=== PATIENT | female | born 1975 | race Caucasian/White ===

== ENCOUNTER 2022-09-25 11:15 | Outpatient (CLI) | payer MEDICAID, SELFPAY ==
[2022-09-25 21:44] LABS: Albumin* 4.2 g/dL (3.3-5.0)
[2022-09-25 21:45] LABS: Chloride* 103 mmol/L (96-114); Potassium* 4.1 mmol/L (3.6-5.1); Sodium* 139 mmol/L (135-149)
[2022-09-25 21:47] LABS: Bilirubin Total* 0.8 mg/dL (0.1-1.5); Carbon Dioxide* 30 mmol/L (20-32); Cholesterol* 220 mg/dL (90-199); Creatinine* 0.8 mg/dL (0.5-1.5); Estimated Glomerular Filt Rate 93 ml/min
[2022-09-25 21:48] LABS: Alanine Aminotransferase* 32 U/L (4-35); Alkaline Phosphatase* 112 U/L (40-150); Aspartate Amino Transferase* 29 U/L (12-35); Blood Urea Nitrogen* 15 mg/dL (5-24); Calcium* 9.4 mg/dL (8.4-10.6); Glucose* 93 mg/dL (60-115); Total Protein* 7.3 g/dL (6.0-8.3); Triglycerides* 263 mg/dL (40-149)
[2022-09-25 21:49] LABS: HDL Cholesterol* 45 mg/dL (>=50); LDL Cholesterol Calculated 122 mg/dL (<100)
== END 2022-09-25 11:16 | disposition home or self-care (01) ==
PROVIDERS: Visit Provider Physician Assistant Medical
DX: Z01.419 Encounter for gynecological examination (general) (routine) without abnormal findings (principal); I10 Essential (primary) hypertension; R73.03 Prediabetes; E66.9 Obesity, unspecified; R82.90 Unspecified abnormal findings in urine
CPT/HCPCS: 80053; 80061; 84443

== ENCOUNTER 2022-12-17 08:03 | Outpatient (CLI) | payer MEDICAID, SELFPAY ==
--- NOTE | 2022-12-17 08:15 | CRLHL7_ITS ---
For Patients: As a result of the Cures Act, medical imaging exams and procedure reports are released immediately into your electronic medical record. You may view this report before your referring provider. If you have questions, please contact your health care provider. BILATERAL DIGITAL SCREENING MAMMOGRAM WITH COMPUTER-AIDED DETECTION CLINICAL HISTORY: Routine screening exam. COMPARISON: None TECHNIQUE: Digital mammogram in CC and MLO projections including computer-aided detection (CAD). BREAST COMPOSITION: There are scattered areas of fibroglandular density. FINDINGS: RIGHT Breast: Focal nodular density within the lower inner quadrant 8 cm from the nipple. LEFT Breast: No suspicious findings. IMPRESSION: RIGHT breast asymmetry/mass. RECOMMENDATIONS: Additional mammographic views of the RIGHT breast including 3D spot compression CC/MLO. RIGHT breast ultrasound may also be required. BI-RADS Category 0: Incomplete: Need Additional Imaging Evaluation and/or Prior Mammograms for Comparison [facility] will contact the patient for follow-up. A lay language report of this examination will be provided to the patient. Dictated by Alfredo Marcano MD @ 12/17/2022 9:32:26 AM PT/Dictated by: Alfredo Marcano MD @ 12/17/2022 9:33:00 AM (Electronically Signed)
== END 2022-12-17 08:04 | disposition home or self-care (01) ==
LOC: MAMMO 08:04
PROVIDERS: Visit Provider Physician Assistant Medical
DX: Z12.31 Encounter for screening mammogram for malignant neoplasm of breast (principal); N63.10 Unspecified lump in the right breast, unspecified quadrant
CPT/HCPCS: 77063; 77067

== ENCOUNTER 2022-12-21 08:36 | Outpatient (CLI) | payer MEDICAID, SELFPAY ==
--- NOTE | 2022-12-21 08:45 | CRLHL7_ITS ---
For Patients: As a result of the Cures Act, medical imaging exams and procedure reports are released immediately into your electronic medical record. You may view this report before your referring provider. If you have questions, please contact your health care provider. RIGHT DIAGNOSTIC MAMMOGRAM WITH COMPUTER-AIDED DETECTION AND TOMOSYNTHESIS CLINICAL HISTORY: RIGHT breast mass/asymmetry. COMPARISON: 12/17/2022 TECHNIQUE: Digital RIGHT mammogram in two projections with computer-aided detection and tomosynthesis. BREAST COMPOSITION: There are scattered areas of fibroglandular density. FINDINGS: 3D spot-compression CC/MLO RIGHT breast mammogram images submitted. Decreased conspicuity of the asymmetric density within the inferior RIGHT breast. No architectural distortion. No suspicious masses. IMPRESSION: No evidence of malignancy. RECOMMENDATIONS: Annual BILATERAL screening mammography. BI-RADS Category 2: Benign Results and recommendations discussed with the patient. A lay language report of this examination will be provided to the patient. Dictated by Alfrdeo Marcano MD @ 12/21/2022 10:33:54 AM PT/Dictated by: Alfredo Marcano MD @ 12/21/2022 10:33:00 AM (Electronically Signed)
== END 2022-12-21 08:37 | disposition home or self-care (01) ==
LOC: MAMMO 08:37
PROVIDERS: Visit Provider Physician Assistant Medical
DX: N63.10 Unspecified lump in the right breast, unspecified quadrant (principal); R92.8 Other abnormal and inconclusive findings on diagnostic imaging of breast
CPT/HCPCS: 77065; G0279

== ENCOUNTER 2023-01-04 14:13 | Emergency (ER) | payer MEDICAID, SELFPAY ==
--- NOTE | 2023-01-04 | CRLHL7_ITS ---
For Patients: As a result of the Century Cures Act, medical imaging exams and procedure reports are released immediately into your electronic medical record. You may view this report before your referring provider. If you have questions, please contact your health care provider. INDICATION: TOOTH INFECTION? , PAIN TECHNIQUE: CT maxillofacial with 128 cc Omnipaque 370 IV contrast. COMPARISON: None. FINDINGS: Scattered dental caries and periapical lucencies. Most notably there is a prominent periapical lucency/absent dentition on the left 1st and 2nd molars. Overlying cortical disruption at the buccal surface with subtle subperiosteal rim enhancing collection, measuring 7 x 3 mm raising suspicion for subperiosteal abscess. Otherwise, the soft tissues of the face appear unremarkable. There are mildly prominent subcentimeter bilateral submandibular and level 2 cervical nodes which are nonspecific and may be reactive. Complete opacification the right maxillary sinus with hyperdense material which may represent inspissated secretions or chronic fungal colonization. Globes are intact. No sign of intraorbital hemorrhage or emphysema. No evidence of acute facial bone fracture. IMPRESSION: Scattered dental caries and periapical lucencies. Most notably there is a prominent periapical lucency/absent dentition on the left 1st and 2nd molars. Overlying cortical disruption at the buccal surface with subtle subperiosteal rim enhancing collection, measuring 7 x 3 mm raising suspicion for subperiosteal abscess. Mildly prominent subcentimeter bilateral submandibular and level 2 cervical nodes which are nonspecific and may be reactive. Complete opacification the right maxillary sinus with hyperdense material which may represent inspissated secretions or chronic fungal colonization. Please note that all CT scans at this facility use dose modulation, iterative reconstruction, and/or weight-based dosing when appropriate to reduce radiation dose to as low as reasonably achievable. Dictated by Martin Lara MD @ 01/04/2023 5:55:04 PM (Electronically Signed)
[2023-01-04 14:29] VITALS: BP 191/109; PULSE 95; RESP 20; TEMP 36.7; O2SAT 99; BMI 47.6
--- NOTE | 2023-01-04 16:42 | ED_ITS ---
HPI - General Adult General Chief complaint: Dental/Oral/Mouth Injury/Pain Stated complaint: Tooth Infection Time Seen by Provider: 01/04/23 14:52 Source: patient Mode of arrival: ambulatory Limitations: no limitations History of Present Illness HPI narrative: 47 Year old female coming in today complaining of left-sided jaw swelling.? Patient states that on the 10 of December she started having a tooth infection.? She was started on antibiotics and then followed up with her dentist to subsequently pulled her tooth.? She states that since then she has had increasing facial swelling instead of decrease in.? She denies any pain however.? She can open and close her mouth fully.? She has had no fevers or chills.? She has had a normal appetite.? She has no pain with chewing.? But again her concerns that her face continues to get bigger.? After getting her tooth pulled she was not put on more antibiotics. Related Data Home Medications Medication Instructions Recorded Confirmed albuterol sulfate 90 mcg/actuation 2 puff inhalation Q6H PRN 07/03/22 01/04/23 aerosol inhaler (ProAir HFA) ipratropium 20 mcg-albuterol 100 g inhalation 07/03/22 01/04/23 mcg/actuation mist for inhalation (Combivent Respimat) Previous Rx's Medication Instructions Recorded lisinopril 40 mg tablet 40 mg PO QDAY #90 tabs 09/25/22 triamcinolone acetonide 0.1 % 1 applic topical BID #15 grams 09/25/22 topical cream pimecrolimus 1 % topical cream 1 applic topical BID #60 grams 10/04/22 (Elidel) sulfacetamide sodium (acne) 10 % 1 applic topical BID #118 mL 10/04/22 lotion (suspension) (Klaron) amoxicillin 875 mg-potassium 1 tab PO BID 7 days #14 tabs 01/04/23 clavulanate 125 mg tablet Allergies Allergy/AdvReac Type Severity Reaction Status Date / Time No Known Drug Allergies Allergy Verified 01/04/23 14:29 Review of Systems Status of ROS: Reports: 10 or more systems reviewed and unremarkable except as noted in History and below [facility] Medical History Cyst Hematuria ?R31.9 - Hematuria, unspecified (ICD-10) Surgical History History of endometrial ablation ?Z98.890 - Other specified postprocedural states (ICD-10) Family History Mother Gout High blood pressure Brother Gout Father Renal failure Social History Narrative: former smoker- quit 2019 has 3 children Smoking Status: Former smoker Do you use any of these nicotine containing products: None Second hand tobacco smoke exposure: No How often do you have a drink containing alcohol: never How often do you have six or more drinks on one occasion: Never AUDIT-C Alcohol total score: 0 Non-prescribed substance use: denies use service: No Exam Narrative: Exam Narrative: Obese, well-developed patient in no acute distress.? Alert and oriented.? Answers questions appropriately.? Mood and affect are appropriate.? Thoughts are goal oriented and rational.? No tangential or magical thinking noted.? Patient speaks in full sentences without needing to catch their breath.? Voice sounds normal. HEENT: Pupils are equally round reactive to light.? Extraocular muscles are intact.? Conjunctivae are moist without any icterus noted.? Moist mucous membranes.? Posterior pharynx is normal. ?She does have a healing gingival bed after having the tooth pulled.? There is no significant erythema noted.? She does have swelling of the gums but no significant fluctuance.? The jaw line on the left is swollen.? Neck is soft without lymphadenopathy.? She can open and close her mouth without difficulty.? There is no tenderness to palpation of the teeth or the gums.? No tenderness of the buccal tissue. Const: Vital Signs, click to edit/add: Vital Signs - 24 hr 01/04/23 14:29 01/04/23 16:57 Temperature 98.1 F 97.3 F L Pulse Rate [Pulse Oximeter] 95 83 Respiratory Rate 20 16 Blood Pressure [Ri ght Forearm] 191/109 H 159/83 H Pulse Oximetry 99 93 Oxygen Delivery Me thod Room Air Room Air Course Course Hospital Course: Facial CT with contrast was done - this showed a very small potential abscess, 3 x 7 mm. Vital Signs Vital signs: Initial Vital Signs Temperature 98.1 F 01/04/23 14:29 Temperature Source Temporal Artery Scan 01/04/23 14:29 Pulse Rate 95 01/04/23 14:29 Pulse Rhythm Regular 01/04/23 14:29 Respiratory Rate 20 01/04/23 14:29 Blood Pressure 191/109 H 01/04/23 14:29 Blood Pressure Mean 136 01/04/23 14:29 Blood Pressure Position Supine 01/04/23 14:29 Pulse Oximetry 99 01/04/23 14:29 Oxygen Delivery Method Room Air 01/04/23 14:29 Vital Signs Temperature 98.1 F 01/04/23 14:29 Pulse Rate 95 01/04/23 14:29 Respiratory Rate 20 01/04/23 14:29 Blood Pressure 191/109 H 01/04/23 14:29 Pulse Oximetry 99 01/04/23 14:29 Oxygen Delivery Method Room Air 01/04/23 14:29 Temperature 97.3 F L 01/04/23 16:57 Pulse Rate 83 01/04/23 16:57 Respiratory Rate 16 01/04/23 16:57 Blood Pressure 159/83 H 01/04/23 16:57 Pulse Oximetry 93 01/04/23 16:57 Oxygen Delivery Method Room Air 01/04/23 16:57 Medical Decision Making MDM Narrative Medical decision making narrative: Oral infection with tiny abscess. At this time we will treat the patient with oral Augmentin for 7 days. She will follow up with primary care and dental provider next week. Patient was agreeable had no other questions. Imaging Data Facial CT: Attestation: I have reviewed the pertinent imaging results. Radiologist's impression: CT maxillofacial with 128 cc Omnipaque 370 IV contrast. COMPARISON: None. FINDINGS: Scattered dental caries and periapical lucencies. Most notably there is a prominent periapical lucency/absent dentition on the left 1st and 2nd molars. Overlying cortical disruption at the buccal surface with subtle subperiosteal rim enhancing collection, measuring 7 x 3 mm raising suspicion for subperiosteal abscess. Otherwise, the soft tissues of the face appear unremarkable. There are mildly prominent subcentimeter bilateral submandibular and level 2 cervical nodes which are nonspecific and may be reactive. Complete opacification the right maxillary sinus with hyperdense material which may represent inspissated secretions or chronic fungal colonization. Globes are intact. No sign of intraorbital hemorrhage or emphysema. No evidence of acute facial bone fracture. IMPRESSION: Scattered dental caries and periapical lucencies. Most notably there is a prominent periapical lucency/absent dentition on the left 1st and 2nd molars. Overlying cortical disruption at the buccal surface with subtle subperiosteal rim enhancing collection, measuring 7 x 3 mm raising suspicion for subperiosteal abscess. Mildly prominent subcentimeter bilateral submandibular and level 2 cervical nodes which are nonspecific and may be reactive. Complete opacification the right maxillary sinus with hyperdense material which may represent inspissated secretions or chronic fungal colonization. Discharge Plan Discharge Clinical Impression: Dental infection Patient Disposition: Home, Self-Care Condition: Stable Additional Instructions: Follow-up with your primary care provider or dental provider this coming week. Return to the ER if you feel like things are getting worse. Prescriptions: New amoxicillin-pot clavulanate 875-125 mg tablet 1 tab PO BID 7 Days Qty: 14 0RF No Action Combivent Respimat 20-100 mcg/actuation mist inhalation Patient Comments: INHALE 1 PUFF BY MOUTH 4 TIMES A DAY albuterol sulfate [ProAir HFA] 90 mcg/actuation HFA aerosol inhaler 2 puff inhalation Q6H PRN lisinopril 40 mg tablet 40 mg PO QDAY Qty: 90 0RF triamcinolone acetonide 0.1 % cream 1 applic topical BID Qty: 15 0RF sulfacetamide sodium (acne) [Klaron] 10 % suspension 1 applic topical BID Qty: 118 1RF pimecrolimus [Elidel] 1 % cream 1 applic topical BID Qty: 60 1RF Follow Up/Referrals: Karina Tello PA-C [Primary Care Provider] - Stand Alone Forms: [facility] Info Instructions
[2023-01-04 16:57] VITALS: BP 159/83; PULSE 83; RESP 16; TEMP 36.3; O2SAT 93
[2023-01-04 17:36] LABS: Basophils Absolute Auto 0.06 K/uL (0.00-0.30); Basophils Percent Auto 0.6 % (0.0-3.0); Eosinophils Absolute Auto 0.11 K/uL (0.00-0.50); Eosinophils Percent Auto 1.2 % (0.0-7.0); Hematocrit 49.7 % (33.0-51.0); Hemoglobin* 17.5 gm/dL (12.0-16.0); Immature Granulocytes Abs Auto 0.01 K/uL (0.00-0.30); Immature Granulocytes Pct Auto 0.1 %; Mean Corpuscular HGB Conc 35 gm/dL (32-36); Mean Corpuscular Hemoglobin 33 pg (26-34); Mean Corpuscular Volume 95 fL (80-100); Monocytes Percent Auto 7.9 % (0.0-11.0); Neutrophils Absolute Auto 4.86 K/uL (1.7-7.0); Neutrophils Percent Auto 51.2 % (42.0-72.0); Platelet Count* 294 K/uL (140-440); RDW Coefficient of Variation % 12.3 % (11.5-15.5); Red Blood Count 5.24 m/uL (4.00-5.20); White Blood Count* 9.49 K/uL (4.50-11.00)
[2023-01-04 17:56] LABS: Slide Review Reflex No
[2023-01-04 18:07] LABS: C Reactive Protein* 1.1 mg/dL (0.5-1.0)
== END 2023-01-04 18:10 | disposition home or self-care (01) ==
PROVIDERS: Emergency Provider Family Medicine; PCP Physician Assistant Medical
DX: K04.7 Periapical abscess without sinus (principal)
CPT/HCPCS: 36415; 70487; 85025; 86140; 99284; Q9967

== ENCOUNTER 2023-06-05 12:20 | Outpatient (CLI) | payer MEDICAID, SELFPAY | END 2023-06-05 12:21 | disposition home or self-care (01) | LOC: NFLDREF 06-06 14:29 | PROVIDERS: PCP Physician Assistant Medical; Referring Provider Physician Assistant Medical; Visit Provider Nurse Practitioner Family | DX: R30.0 Dysuria (principal); N39.0 Urinary tract infection, site not specified; N30.90 Cystitis, unspecified without hematuria | CPT/HCPCS: 87086; 87186 ==

== ENCOUNTER 2023-10-23 06:22 | Day surgery (SDC) | payer MEDICAID, SELFPAY ==
[2023-10-23] VITALS (7 sets, daily range): BP systolic 144–162; BP diastolic 69–95; PULSE 82–99; RESP 14–18; TEMP 36.6; O2SAT 96–99; BMI 49.4
[2023-10-23] MEDS: ETHYL CHLORIDE 1 APPLICATION 1 APPLIC TOPICAL (06:55)
[2023-10-23] MEDS: BUPIVACAINE 0.5% 30 ML INJECTION (06:55)
--- NOTE | 2023-10-23 07:32 | PM.ORPRC ---
Procedure Note Date of procedure: 10/23/23 Procedure: PREOPERATIVE DIAGNOSIS: 1. Right carpal tunnel syndrome POSTOPERATIVE DIAGNOSIS: 1. Right carpal tunnel syndrome PROCEDURE: 1. Right open carpal tunnel release SURGEON: Levi Rodriguez MD. DOWEL PIN WORKER: CHANDU Barrett ANESTHESIA: Local anesthetic (50:50 mixture of 2 % lidocaine with epi and 0.5% marcaine plain) - 10ml total IMPLANTS: None EBL: 2 mL TOURNIQUET: None COMPLICATIONS: None evident INDICATIONS: The patient is a pleasant 47-year-old female who has experienced right hand numbess/tingling affecting the radial 3.5 digits for multiple months. It has progressively gotten worse. Nonoperative management has been tried and failed, and therefore surgery was recommended. DESCRIPTION OF PROCEDURE: Following a thorough discussion of risks, benefits, and alternatives consent was obtained and the operative extremity was marked. The patient was brought to the operating room and placed supine on the operating table. Local anesthesia induction was undertaken in preop holding. No antibiotics were administered as this was planned to be a local case only. Proper time-out was performed identifying proper patient, site, and procedure. The operative extremity was prepped and draped in the appropriate sterile fashion using ChloraPrep. An incision was made in line with the radial border of the ring finger beginning 1 cm distal to the distal wrist crease and progressing for another 2.5cm distal. Caution was taken to stay proximal to Holly's cardinal line. Sharp incision through the skin, subcutaneous tissue, and palmar fascia was performed. The thenar musculature was bluntly elevated off the transverse carpal ligament. The ligament was directly visualized, and divided sharply with a 15 blade. This was released from its most proximal to the most distal extent. Metzenbaum scissor was also utilized to release the fascia extension proximally. We confirmed complete release of the transverse carpal ligament. Closure was performed with 4-O nylon in interrupted fashion. Soft dressings were applied, and the patient was transferred to the recovery room in stable condition. PLAN: 1. Encourage elevation of the operative extremity. 2. Range of motion of the fingers and hand/wrist as tolerated. 3. Ibuprofen/acetaminophen and/or oxycodone as needed for pain control. 4. Follow up with PA visit or nurse visit in 12-16 days for wound check and suture removal.
[2023-10-23] MEDS: NEOMYCIN/BACITRACIN/POLYMYXIN B 1 APPLIC TOPICAL (07:39)
== END 2023-10-23 07:57 | disposition home or self-care (01) ==
PROVIDERS: PCP Physician Assistant Medical; Visit Provider Orthopaedic Surgery Sports Medicine
PROC: (CPT 64721; principal; 2023-10-23 07:30)
DX: G56.01 Carpal tunnel syndrome, right upper limb (principal)
CPT/HCPCS: 64721; J0665

== ENCOUNTER 2024-06-24 09:08 | Outpatient (CLI) | payer MEDICAID, SELFPAY ==
--- OUTSIDE RECORDS SUMMARY | 2024-06-24 09:10 | XMS_ITS | Clinical Summary ---
Author Organization [facility] Address [place], [place] [address] Care Team Providers Care Maintainer [employer] Name Role Phone Pcp, No Primary Care Provider Unavailabl e Allergies No known active allergies Medications Medication Sig Dispensed Refills Start Date End Date Status albuterol HFA (PROAIR HFA) 90 mcg/Actuation inhaler Inhale 2 Puffs by mouth every 4 hours if needed for Shortness Of Breath. 1 Inhaler 0 09/06/2010 Active lisinopril (PRINIVIL; ZESTRIL) 20 mg tablet 07/16/2015 Active omeprazole (PRILOSEC) 40 mg Delayed-Release capsule 07/16/2015 Active Active Problems Problem Noted Date Diagnosed Date Fatty liver 11/02/2010 Tobacco use disorder 09/06/2010 HTN (hypertension) 07/11/2010 Family History Medical History Relation Name Comments Diabetes Mother Genetic Mother Hemachromatosis Other Mother glaucoma Cancer-breast Sister Relation Name Status Comments Mother Sister Social History Tobacco Use Types Packs/Day Years Used Date Smoking Tobacco: Every Day Cigarettes Alcohol Use Standard Drinks/Week Comments No 0 (1 standard drink = 0.6 oz pur e alcohol) Sex and Gender Information Value Date Recorded Sex Assigned at Not on file Gender Identity Not on file Sexual Orientation Not on file Obstetrics History Para Term AB IAB SAB Ectopic Multiple Livin g Live Births 3 3 0 Date Outcome GA Total Labor Labor/2nd/3rd Weight Sex Type Anes PTL Marivel A1 A5 Name Clin Para Vag-Spo nt Para Vag-Spo nt Para Vag-Spo nt Last Filed Vital Signs Vital Sign Reading Time Taken Comments Blood Pressure 150/98 10/31/2018 2:05 PM LAB MANAGER Pulse 84 10/31/2018 2:05 PM LAB MANAGER Temperature 36.8 ??C (98.3 ??F) 10/18/2010 10:[address] Respiratory Rate 14 10/31/2018 2:05 PM LAB MANAGER Oxygen Saturation 94% 09/13/2010 3:43 PM LAB MANAGER Inhaled Oxygen Concentration - - Weight 117.9 kg (260 lb) 10/31/2018 2:05 PM LAB MANAGER Height 157.5 cm (5' 2) 09/13/2010 10:00 AM LAB MANAGER Body Mass Index 47.55 09/13/2010 10:00 AM LAB MANAGER Plan of Treatment Health Maintenance Due Date Last Done Comments Tdap 1988 Depression screening for age 12+ 1989 HIV for age 15-65 1992 BMI (ht and wt on same day) for age 18+ 1995 Hepatitis C screening for ag e 18-79 1995 Tetanus booster 1997 Pap test for age 21-65 07/19/2013 07/19/2010 Colonoscopy through age 75 2022 Lipids for age 45-75 2022 07/19/2010, 07/19/2010 Mammogram for age 45-75 2022 COVID-19 vaccine series (2022-24 season) 2024 Influenza for age 9-49 06/07/2024 Pneumococcal series for age 6-64 Aged Out No longer eligible b ased on patient's age to complete this topic Medical Devices Implanted Type Area Feed House Supervisor Device Identifier Shelf Expiration Date Model / Serial / Lot System Control Permanentpressure - [id number] Implanted:Qty: 2 on 09/13/2010 at [facility] Bilateral: Fallopian Tube [employer] 08/07/2012 [id number] / / [id number] Procedures Procedure Name Priority Date/Time Associated Diagnosis Comments QUALITY ASSURANCE ANALYST THIN PREP PAP SCREEN IMAGED Routine 07/19/2010 9:38 AM CDT Pap smear for cervical cancer screening LIPID PANEL W REFLEX MEASURED LDL Routine 07/19/2010 9:37 AM CDT Lipid screening from Last 3 Months or Most Recently Relevant to Health Maintenance Results * QUALITY ASSURANCE ANALYST THIN PREP PAP SCREEN IMAGED (07/19/2010 9:38 AM CDT) CYTOLOGY CYTOPATHOLOGY REPORT [facility] Status: Final Status ?[id number] CLINICAL INFORMATION Last Date of LMP ? :07/08/2010 Last Pap Date ?:2001 Last Pap Result ?:NIL ABN Hutchinson/Bx Past 5 YRS :None Hormone Usage ?:BCP/OCP/Patch/R ing Menstrual Status ? :Regular Periods Hutchinson/Bx done today ? :No Additional Information :None given HPV Request ?:HPV if ASCUS SPECIMEN SOURCE ?:Cervical/vagina l ThinPrep Vial, screening SPECIMEN ADEQUACY ?:Satisfactory for evaluation Endocervical component ? present. INTERPRETATION/RES ULT Negative for intraepithelial lesion or malignancy (NIL) Cytology 1st Screener ??:camilak Signed by ?:chandan This specimen was screened by the FDA approved ThinPrep Imaging System and manually reviewed. NOTE: ??The Pap test is a screening technique, not a diagnostic procedure. ??It is used ??primarily to screen for squamous cancers and precursor lesions. ??Published studies have shown that it is subject to both false negative and false positive results. ??The pap test should not be used as the sole means to diagnose or exclude pre-malignant and malignant lesions. COLLECTED:07/19/10 ? ACCESSIONED: ??07/20/10 ?? SIGNED: ??07/29/10 [facility] [place] CODE NIL [facility] Cervical/Vaginal (Cervical/Vagina l) 07/19/2010 9:38 AM CDT 07/19/2010 9:37 AM CDT Herlinda Mandpaulina DASH PATHOLOGY/CYTOLOGY Performing Organization Address City/[facility]/ZIP Co de Phone Number [facility] INTERNAL ZIP [phone] [address] * (ABNORMAL) LIPID PANEL W REFLEX MEASURED LDL (07/19/2010 9:37 AM CDT) CHOLESTEROL,TOTAL 240(H) 110 - 199 mg/dL [facility] TRIGLYCERIDES 401(H) 40 - 149 mg/dL [facility] HDL CHOLESTEROL 42 >40 mg/dL [facility] CHOL/HDL RATIO 5.71(H) <4.51 [facility] LDL CHOLESTEROL ?? Invalid LDL when Trig >400 reflexed to measured LDL. [facility] PATIENT STATUS Fasting [facility] Blood specimen (specimen) BLOOD SPECIMEN / Unknown 07/19/2010 9:37 AM CDT 07/19/2010 9:35 AM CDT Herlinda Judypaulina DASH CHEMISTRY [facility] INTERNAL ZIP [phone] [id number] from Last 3 Months or Most Recently Relevant to Health Maintenance Advance Directives * Full Code (Latest Code Status on File) Date Activated Date Inactivated Comments 09/13/2010 9:53 AM 09/13/2010 8:27 PM Care Teams Maintainer [employer] Relationship Specialty Start Date End Date Pcp, No . PCP - General 11/30/16
[2024-06-24 11:15] LABS: Lab Add On Test New Spec Needed
== END 2024-06-24 09:09 | disposition home or self-care (01) ==
PROVIDERS: PCP Physician Assistant Medical; Visit Provider Physician Assistant Medical
DX: D58.2 Other hemoglobinopathies (principal); I10 Essential (primary) hypertension; Z11.59 Encounter for screening for other viral diseases; Z13.29 Encounter for screening for other suspected endocrine disorder
CPT/HCPCS: 80053; 82728; 83540; 83550; 84443; 86703; 86803

== ENCOUNTER 2024-07-29 11:29 | Outpatient (CLI) | payer MEDICAID, SELFPAY ==
--- OUTSIDE RECORDS SUMMARY | 2024-07-29 11:33 | XMS_ITS | Clinical Summary ---
Author Organization [employer] [facility] Address [place], [place] [address] Care Team Providers Care [employer] Name Role Phone Pcp, No Primary Care [...] Comments Blood Pressure 150/98 10/31/2018 2:05 PM INVESTIGATIVE ANALYST Pulse 84 10/31/2018 2:05 PM INVESTIGATIVE ANALYST Temperature 36.8 ??C (98.3 ??F) 10/18/2010 10:[address] Respiratory Rate 14 10/31/2018 2:05 PM INVESTIGATIVE ANALYST Oxygen Saturation 94% 09/13/2010 3:43 PM INVESTIGATIVE ANALYST Inhaled Oxygen Concentration - - Weight 117.9 kg (260 lb) 10/31/2018 2:05 PM INVESTIGATIVE ANALYST Height 157.5 cm (5' 2) 09/13/2010 10:00 AM INVESTIGATIVE ANALYST Body Mass Index 47.55 09/13/2010 10:00 AM INVESTIGATIVE ANALYST Plan of Treatment Health Maintenance Due Date [...] for age 45-75 2022 COVID-19 vaccine series (2023- season) 2024 Influenza for age 9-49 06/07/2024 Pneumococcal series for age 6-64 Aged Out No longer eligible b ased on patient's age to complete this topic Medical Devices Implanted Type Area Summer Clerk Device Identifier Shelf Expiration Date Model / Serial / Lot System Control Permanentpressure - [id number] Implanted:Qty: 2 on 09/13/2010 at [facility] Bilateral: Fallopian Tube [employer] 08/07/2012 [id number] / / [id number] Procedures Procedure Name Priority Date/Time Associated Diagnosis Comments LICENSE INSPECTOR THIN PREP PAP SCREEN IMAGED Routine 07/19/2010 9:38 AM CDT Pap smear for cervical cancer screening LIPID PANEL W REFLEX MEASURED LDL Routine 07/19/2010 9:37 AM CDT Lipid screening from Last 3 Months or Most Recently Relevant to Health Maintenance Results * LICENSE INSPECTOR THIN PREP PAP SCREEN IMAGED (07/19/2010 9:38 AM CDT) CYTOLOGY CYTOPATHOLOGY REPORT [facility] Status: Final Status ?[id number] CLINICAL INFORMATION Last Date of LMP ? :07/08/2010 Last Pap Date ?:2001 Last Pap Result ?:NIL ABN [place]/Bx Past 5 YRS :None Hormone Usage ?:BCP/OCP/Patch/R ing Menstrual Status ? :Regular Periods [place]/Bx done today ? :No Additional Information :None [...] COLLECTED:07/19/10 ? ACCESSIONED: ??07/20/10 ?? SIGNED: ??07/29/10 [facility] PAP [place]ETH[place]DA CODE NIL [facility] Cervical/Vaginal (Cervical/Vagina l) 07/19/2010 9:38 AM CDT 07/19/2010 9:37 AM CDT Herlinda Mandpaulina DASH PATHOLOGY/CYTOLOGY Performing Organization Address City/[facility] Hospital/ZIP Co de Phone Number [facility] INTERNAL ZIP [address] [address] * (ABNORMAL) LIPID PANEL W REFLEX MEASURED LDL (07/19/2010 9:37 AM CDT) CHOLESTEROL,TOTAL 240(H) 110 - 199 mg/dL [facility] TRIGLYCERIDES 401(H) 40 - 149 mg/dL [facility] HDL CHOLESTEROL 42 >40 mg/dL [facility] CHOL/HDL RATIO 5.71(H) <4.51 [facility] LDL CHOLESTEROL ?? Invalid LDL when Trig >400 reflexed to measured LDL. [facility] PATIENT STATUS Fasting [facility] Blood specimen (specimen) BLOOD SPECIMEN / Unknown 07/19/2010 9:37 AM CDT 07/19/2010 9:35 AM CDT Herlinda Judypaulina DASH CHEMISTRY [facility] INTERNAL ZIP [phone] [address] from Last 3 Months or Most Recently Relevant to Health Maintenance Advance Directives * Full Code (Latest Code Status on File) Date Activated Date Inactivated Comments 09/13/2010 9:53 AM 09/13/2010 8:27 PM Care Teams [employer] Relationship Specialty Start Date End Date Pcp, No . PCP - General 11/30/16
== END 2024-07-29 11:30 | disposition home or self-care (01) ==
PROVIDERS: PCP Physician Assistant Medical; Visit Provider Physician Assistant Medical
DX: D58.2 Other hemoglobinopathies (principal); M62.89 Other specified disorders of muscle
CPT/HCPCS: 80053; 82550; 82607; 82746; 85045

== ENCOUNTER 2024-08-27 07:58 | Outpatient (RCR) | payer MEDICAID, SELFPAY ==
[2024-08-27] MEDS: SODIUM CHLORIDE 0.9 % (FLUSH) 10 ML SYRINGE IVF (08:29)
[2024-08-27] MEDS: REGADENOSON 0.4 MG/5 ML SYRINGE IVP (08:29)
[2024-08-27 08:44] VITALS: BP 118/78; PULSE 89; RESP 16
--- NOTE | 2024-08-27 09:12 | W.PM.STED ---
Stress Test Note Date Date Seen: 08/27/24 Date of test: 08/27/24 Providers Primary care provider: Minerva Payton Stress test physician: Rula Andre Stress Test Note Stress test ordered: Lexiscan Indication for test: Dyspnea Stress test medicine: Lexiscan Results discussion: Resting EKG: Sinus rhythm, 91 beats per minute. Flipped T-waves lateral limb leads without significant ST segment change. Resting blood pressure: 110/70 Stress test: Patient was consented on Lexiscan stress test and agreed to proceed. Walking Lexiscan protocol was followed, the treadmill unfortunately did not stop but patient did walk in place. She experienced some flushing/sweating and headache but no chest pain or respiratory symptoms with the regadenoson infusion. There was no arrhythmia, no diagnostic changes for ischemia. Patient had appropriate blood pressure response but no hypotension or significant elevation of blood pressure. She was asymptomatic at the termination of the test. Await nuclear images to couple this for a full formal diagnostic. Impression: Subjectively negative, objectively negative EKG portion of this Lexiscan. Follow up suggested: Patient will have post stress nuclear images obtained and then discharged to home. She will await final report result from her primary provider.
== END 2024-08-27 09:30 | disposition home or self-care (01) ==
LOC: STRESS 07:58
PROVIDERS: PCP Physician Assistant Medical; Visit Provider Physician Assistant Medical
DX: R06.00 Dyspnea, unspecified (principal); M62.89 Other specified disorders of muscle; I10 Essential (primary) hypertension; Z72.0 Tobacco use
CPT/HCPCS: 78452; 93016; 93017; A9500; J2785

== ENCOUNTER 2024-09-07 14:54 | Outpatient (CLI) | payer MEDICAID, SELFPAY ==
--- OUTSIDE RECORDS SUMMARY | 2024-09-07 15:00 | XMS_ITS | Clinical Summary ---
Author Organization [employer] [facility] Address [place], [place] [address] Care Team Providers Care Resolution Rep Name Role Phone Pcp, No Primary Care [...] Tobacco use disorder 09/06/2010 HTN (hypertension) 07/11/2010 Encounters Date Type Department Care Team Description 08/27/2024 9:00 AM DIRECTOR INDUSTRIAL RELATIONS Ancillary Procedure Normal [facility] at [facility] [address] [place] [address] 07/30/2024 Lab Requisition [facility] [phone] Minerva Elam PA-C from Last 3 Months Family History Medical History Relation Name Comments [...] Comments Blood Pressure 150/98 10/31/2018 2:05 PM DIRECTOR INDUSTRIAL RELATIONS Pulse 84 10/31/2018 2:05 PM DIRECTOR INDUSTRIAL RELATIONS Temperature 36.8 C (98.3 F) 10/18/2010 10:35 AM DIRECTOR INDUSTRIAL RELATIONS Respiratory Rate 14 10/31/2018 2:05 PM DIRECTOR INDUSTRIAL RELATIONS Oxygen Saturation 94% 09/13/2010 3:43 PM DIRECTOR INDUSTRIAL RELATIONS Inhaled Oxygen Concentration - - Weight 117.9 kg (260 lb) 10/31/2018 2:05 PM DIRECTOR INDUSTRIAL RELATIONS Height 157.5 cm (5' 2) 09/13/2010 10:00 AM DIRECTOR INDUSTRIAL RELATIONS Body Mass Index 47.55 09/13/2010 10:00 AM DIRECTOR INDUSTRIAL RELATIONS Plan of Treatment Upcoming Encounters Date Type Department Care Team (Late st Contact Info) Description 09/07/2024 3:15 PM DIRECTOR INDUSTRIAL RELATIONS Ancillary Procedure [facility] & [address] [address] Health Maintenance Due Date Last Done Comments [...] this topic Medical Devices Implanted Type Area Patent Legal Assistant Device Identifier Shelf Expiration Date Model / Serial / Lot System Control Permanentpressure - [id number] Implanted:Qty: 2 on 09/13/2010 at [facility] Bilateral: Fallopian Tube [employer] 08/07/2012 [id number] / / [id number] Procedures Procedure Name Priority Date/Time Associated Diagnosis Comments NM CARDIAC MPI STRESS TEST Routine 08/27/2024 3:05 PM DIRECTOR INDUSTRIAL RELATIONS Dyspnea LAB TRACKING EVENT Routine 07/29/2024 12 :19 PM CDT PERIPHERAL BLD MORPHOLOGY Routine 07/29/2024 12:19 PM CDT ENDLESS BELT FINISHER THIN PREP PAP SCREEN IMAGED Routine 07/19/2010 9:38 AM CDT Pap smear for cervical cancer screening LIPID PANEL W REFLEX MEASURED LDL Routine 07/19/2010 9:37 AM CDT Lipid screening from Last 3 Months or Most Recently Relevant to Health Maintenance Results * NM CARDIAC MPI STRESS TEST (08/27/2024 3:05 PM DIRECTOR INDUSTRIAL RELATIONS) Anatomical Region Laterality Modality HEART Ultrasound 08/25/2024 8:39 AM DIRECTOR INDUSTRIAL RELATIONS Narrative 08/31/2024 11:24 AM DIRECTOR INDUSTRIAL RELATIONS Toll -free: [phone] [employer] MYOCARDIAL PERFUSION IMAGING REPORT REST/STRESS SINGLE ISOTOPE GATED SPECT IMAGING. Patient Name: MARIA M DECKER Gender: F Height: 62 in Weight: 254 lb Study Date: 08/25/2024 8:39:45 AM BSA: 2.12 m : 1975 48 years BMI: 46.46 kg/m Ord. Prov.: MINERVA ELAM Monitoring Prov.: Unknown Performing Site [facility] Clinical History: Dyspnea. No known coronary artery disease. Cardiac Risk Factors: Hypertension, obesity, diabetes mellitus, tobacco use and family history of heart disease. Other Symptomatology: WILMA, asthma. Cardiac History: None known. Beta chase/calcium channel chase/nitrate taken today: Yes. Caffeine/methylxanthine taken within 12 hrs: No. Chest pain/discomfort at baseline: No. IMPRESSION 1. Myocardial perfusion was normal. 2. Overall left ventricular systolic function was normal without wall motion abnormalities. The post stress LVEF was visually estimated to be 75%. 3. See separate report for EKG intrepretation. 4. There were no prior studies available for comparison. STRESS MPI PROCEDURE The patient was studied utilizing a two day rest/stress protocol. Myocardial perfusion imaging was performed at rest, 25 minutes following the intravenous injection of 40.2 mCi of 99mTc sestamibi. 30 seconds after the 15 second IV regadenoson injection, the patient was injected via IV with 40.1 mCi of 99mTc sestamibi. Gated post-stress tomographic imaging was performed 25 minutes after stress. After image acquisition was completed, data was reconstructed in short, horizontal long and vertical long axis views and tomographic slices were generated. - Pharmacologic stress testing was performed with an IV regadenoson dose of 0.4 mg. - No low level exercise was performed. - Resting heart rate was 99 bpm, peak heart rate was 127 bpm. - Resting blood pressure was 110 mmHg/70 mmHg; peak blood pressure was 140 mmHg/76 mmHg. - Patient did not develop significant symptoms. FINDINGS Imaging - The overall quality of the study was excellent with mild soft tissue attenuation on rest and stress studies. Computerized motion correction was not applied to rest and stress studies. - SPECT perfusion images were normal without evidence of ischemia or infarction. - Post stress gated imaging revealed normal left ventricular size with a visually estimated LVEF of 75%. (Lab normals: LVEF >50%, LV Size <150 ml). - There was normal post-stress myocardial thickening and wall motion. - No right ventricular abnormalities were identified. - There was no evidence of abnormal lung or extracardiac activity. - Risk/extent of ischemia per ACC Noninvasive Risk Stratification Guideline: LOW RISK. This study was interpreted and electronically signed by Silverio Shah MD on 08/28/2024 2:16:36 PM. Final (Updated) Procedure Note Silverio Shah MD - 08/31/2024 Toll -free: [phone] [employer] MYOCARDIAL PERFUSION IMAGING REPORT REST/STRESS SINGLE ISOTOPE GATED SPECT IMAGING. Patient Name: MARIA M DECKER Gender: F Height: 62 in Weight: 254 lb Study Date: 08/25/2024 8:39:45 AM BSA: 2.12 m : 1975 48 years BMI: 46.46kg/m Ord. Prov.: MINERVA ELAM Monitoring Prov.: Unknown Performing Site [facility] Clinical History: Dyspnea. No known coronary artery disease. Cardiac Risk Factors: Hypertension, obesity, diabetes mellitus, tobaccouse and family history of heart disease. Other Symptomatology: WILMA, asthma. Cardiac History: None known. Beta chase/calcium channel chase/nitrate taken today: Yes. Caffeine/methylxanthine taken within 12 hrs: No. Chest pain/discomfort at baseline: No. IMPRESSION 1. Myocardial perfusion was normal. 2. Overall left ventricular systolic function was normal without wallmotion abnormalities. The post stress LVEF was visually estimated to be75%. 3. See separate report for EKG intrepretation. 4. There were no prior studies available for comparison. STRESS MPI PROCEDURE The patient was studied utilizing a two day rest/stress protocol.Myocardial perfusion imaging was performed at rest, 25 minutes followingthe intravenous injection of 40.2 mCi of 99mTc sestamibi. 30 seconds afterthe 15 second IV regadenoson injection, the patient was injected via IVwith 40.1 mCi of 99mTc sestamibi. Gated post-stress tomographic imagingwas performed 25 minutes after stress. After image acquisition wascompleted, data was reconstructed in short, horizontal long and verticallong axis views and tomographic slices were generated. - Pharmacologic stress testing was performed with an IV regadenoson doseof 0.4 mg. - No low level exercise was performed. - Resting heart rate was 99 bpm, peak heart rate was 127 bpm. - Resting blood pressure was 110 mmHg/70 mmHg; peak blood pressure kfd108 mmHg/76 mmHg. - Patient did not develop significant symptoms. FINDINGS Imaging - The overall quality of the study was excellent with mild soft tissue attenuation on rest and stress studies. Computerized motion correction wasnot applied to rest and stress studies. - SPECT perfusion images were normal without evidence of ischemia orinfarction. - Post stress gated imaging revealed normal left ventricular size with a visually estimated LVEF of 75%. (Lab normals: LVEF >50%, LV Size <150ml). - There was normal post-stress myocardial thickening and wall motion. - No right ventricular abnormalities were identified. - There was no evidence of abnormal lung or extracardiac activity. - Risk/extent of ischemia per ACC Noninvasive Risk StratificationGuideline: LOW RISK. This study was interpreted and electronically signed by Baltazar Wynn 08/28/2024 2:16:36 PM. Final (Updated) Minerva Elam PA-C NM * LAB TRACKING EVENT (07/29/2024 12:19 PM CDT) Other (Other) Client Collect / Unknown 07/29/2024 12:19 PM CDT 07/30/2024 2:18 PM CDT Minerva Elam PA-C LAB [facility]ILL [facility] [address] [place] [address], * PERIPHERAL BLD MORPHOLOGY (07/29/2024 12:19 PM CDT) Case Report Special Hematology Report Case: [id number] Authorizing Provider: Minerva Elam PA-C Collected: 07/29/2024 1219 Ordering Location: [facility] Received: 07/30/2024 1800 Pathologist: Jamel Shirley MD Specimen: Peripheral Blood 08/04/2024 7:24 AM CDT [facility] Final Diagnosis PERIPHERAL BLOOD: 1. History of an elevated hemoglobin (currently normal), favor secondary 2. Mild absolute lymphocytosis with nonspecific features 3. No evidence of a monotypic B-cell lymphocyte population by flow cytometry 4. See comment 08/04/2024 7:24 AM CDT [facility] Comment The lymphocytosis has nonspecific features. Flow cytometry was performed and shows no evidence of a monotypic B-cell lymphocyte population. Therefore, the lymphocytosis is favored to be reactive/nonspeci fic. Clinical correlation is recommended. Per CBC scan, the patient has a history of elevated hemoglobin. Given the currently normal hemoglobin, RBC count, and hematocrit, the prior elevated hemoglobin is favored to be related to a secondary cause. If the patient develops persistent erythrocytosis or polycythemia, a repeat peripheral smear could be considered for further evaluation. 08/04/2024 7:24 AM CDT [facility] Clinical Information The patient is a 48-year-old female. Per CBC scan: Elevated hemoglobin and iron 08/04/2024 7:24 AM T [facility] CBC and Differential HEMATOLOGY PARAMETERS Tested at: [facility] RESULTS EXPECTED VALUES WBC: 9.3 4.5-23v6574/cumm RBC: 4.46 4.00-5.20 mil/cumm HGB: 15 12-16 gm/dl HCT: 42.7 33-51% MCV: 95.7 80-100 fl NORMOCYTIC MCH: 33.6 26-34 pg MCHC: 35.1 32-36 gm/dl NORMOCHROMIC RDW: 12.9 11.5-15.5% PLT: 262 140-520o3263/uL Retic: 2.38 0.5-1.5% ELEVATED Differential Absolute (%) Expected (%) (x10*9/L) (x10*9/L) Neutrophils: 4.22 (45.3) 1.7-7.0 (42-72%) Lymphocytes: 4.25 (45.6) 0.9-2.9 (20-44%) ELEVATED Monocytes: 0.7 (7.5) <0.9 (0-11%) Eosinophils: 0.12 (1.3) <0.5 (0-2%) Basophils: 0.03 (.3) <0.3 (<3.0%) 08/04/2024 7:24 AM [facility] Microscopic Description The final diagnosis is based on microscopic examination of an appropriately stained blood smear. 08/04/2024 7:24 AM [facility] Flow Cytometry Summary B Cell Screen panel: Interpretation: No monotypic B lymphocytes are detected. Clinical indication for flow cytometry: To evaluate for light chain restriction among B cells. Percent of Lymphs B cells: 14.9% T cells: 75.5% CD19+/[place]: 8.2% CD19+/Lambda: 6.4% [place]:Lambda ratio: 1.3 B lymphocytes in this analysis demonstrate normal qualitative expression of the following antigens: CD3, CD5, CD10, CD19, CD20, CD45, and [place] and Lambda surface light chains. Quality Assessment Viability (7-AAD): 85% Polytypic B cell events: 1001 Nucleated cells analyzed: 48292 Limit of detection (LOD): 0.2% These results and cytograms have been verified by Dr. Shirley. This test was developed and its performance characteristics verified by [facility]. It has not been cleared or approved by the US Food and Drug Administration. This test is used for clinical purposes and should not be regarded as investigational or for research. Immunostains may have been used on this case in conjunction with flow cytometry in order to address ambiguous or inconclusive findings and/or to provide prognostic information. In the event immunostains were performed, results of both modalities were coordinated with H&E findings during diagnostic evaluation. Analytic Flow Tech: Pamela Callahan, 07/31/2024 1:59 PM Verifying Flow Tech: Milly Townsend, 07/31/2024 2:08 PM 08/04/2024 7:24 AM CDT [facility] Additional Information Interpreted at [facility] - [address] [place] [address] 08/04/2024 7:24 AM CDT [facility] Blood (Peripheral Blood) 07/29/2024 12:19 PM CDT 07/30/2024 6:01 PM CDT Minerva Elam PA-C [facility] [address] [place] [address], * ENDLESS BELT FINISHER THIN PREP PAP SCREEN IMAGED (07/19/2010 9:38 AM CDT) CYTOLOGY CYTOPATHOLOGY REPORT [facility] Status: Final Status [id number] CLINICAL INFORMATION Last Date of LMP :07/08/2010 Last Pap Date :2001 Last Pap Result :NIL ABN [place]/Bx Past 5 YRS :None Hormone Usage :BCP/OCP/Patch/Rin g Menstrual Status :Regular Periods [place]/Bx done today :No Additional Information :None given HPV Request :HPV if ASCUS SPECIMEN SOURCE :Cervical/vaginal ThinPrep Vial, screening SPECIMEN ADEQUACY :Satisfactory for evaluation Endocervical component present. INTERPRETATION/RES ULT Negative for intraepithelial lesion or malignancy (NIL) Cytology 1st Screener :chandan Signed by :chandan This specimen was screened by the FDA approved ThinPrep Imaging System and manually reviewed. NOTE: The Pap test is a screening technique, not a diagnostic procedure. It is used primarily to screen for squamous cancers and precursor lesions. Published studies have shown that it is subject to both false negative and false positive results. The pap test should not be used as the sole means to diagnose or exclude pre-malignant and malignant lesions. COLLECTED:07/19/10 ACCESSIONED: 07/20/10 SIGNED: 07/29/10 [facility] PAP [place] CODE NIL [facility] Cervical/Vaginal (Cervical/Vagina l) 07/19/2010 9:38 AM CDT 07/19/2010 9:37 AM CDT Herlinda Aleman DO PATHOLOGY/CYTOLOGY [facility] [place]NAL ZIP [address] [address] * (ABNORMAL) LIPID PANEL W REFLEX MEASURED LDL (07/19/2010 9:37 AM CDT) CHOLESTEROL,TOTAL 240(H) 110 - 199 mg/dL [facility] TRIGLYCERIDES 401(H) 40 - 149 mg/dL [facility] HDL CHOLESTEROL 42 >40 mg/dL [facility] CHOL/HDL RATIO 5.71(H) <4.51 [facility] LDL CHOLESTEROL Invalid LDL when Trig >400 reflexed to measured LDL. [facility] PATIENT STATUS Fasting [facility] Blood specimen (specimen) BLOOD SPECIMEN / Unknown 07/19/2010 9:37 AM CDT 07/19/2010 9:35 AM CDT Herlinda Aleman DO CHEMISTRY [facility] INTERNAL ZIP [address] [address] from Last 3 Months or Most Recently Relevant to Health Maintenance Advance Directives * Full Code (Latest Code Status on File) Date Activated Date Inactivated Comments 09/13/2010 9:53 AM 09/13/2010 8:27 PM Care Teams Resolution Rep Relationship Specialty Start Date End Date Pcp, No . PCP - General 11/30/16
== END 2024-09-07 14:55 | disposition home or self-care (01) ==
LOC: US 14:55
PROVIDERS: PCP Physician Assistant Medical; Visit Provider Physician Assistant Medical
DX: M62.89 Other specified disorders of muscle (principal); R20.0 Anesthesia of skin; Z72.0 Tobacco use
CPT/HCPCS: 93924

== ENCOUNTER 2024-09-17 07:10 | Outpatient (CLI) | payer MEDICAID, SELFPAY ==
--- NOTE | 2024-09-17 07:15 | CRLHL7_ITS ---
For Patients: As a result of the Century Cures Act, medical imaging exams and procedure reports are released immediately into your electronic medical record. You may view this report before your referring provider. If you have questions, please contact your health care provider. INDICATION: Low back pain. TECHNIQUE: Noncontrast sagittal and axial T1, T2, and sagittal STIR sequences are provided. Compared to prior study from January 19, 2014. FINDINGS: The overall stature, alignment and intrinsic marrow signal of the lumbar spine is within normal limits. Conus is normal. L1-2: Unremarkable. L2-3: There is a less pronounced posterior central disc protrusion that results in minimal central canal narrowing with no foraminal narrowing. L3-4: Minor broad-based posterior disc bulge results in minimal bilateral foraminal narrowing with no central canal narrowing. L4-5: Mild broad-based posterior disc bulge [id number] bilateral facet arthropathy results in minimal bilateral foraminal narrowing with no central canal narrowing. L5-S1: Moderate bilateral facet arthropathy results in no significant central canal or foraminal narrowing. IMPRESSION: 1. Less pronounced posterior central disc protrusion at L2-3 resulting in minimal central canal narrowing. 2. Minimal bilateral foraminal narrowing at L3-4, L4-5. 3. Milder degenerative changes within the remainder of the lumbar spine as outlined above. Dictated by Armani Fonseca MD @ 09/18/2024 9:31:30 PM (Electronically Signed)
== END 2024-09-17 07:11 | disposition home or self-care (01) ==
LOC: MRI 07:12
PROVIDERS: PCP Physician Assistant Medical; Visit Provider Physician Assistant Medical
DX: M54.50 Low back pain, unspecified (principal); M51.26 Other intervertebral disc displacement, lumbar region; R29.898 Other symptoms and signs involving the musculoskeletal system
CPT/HCPCS: 72148

== ENCOUNTER 2024-10-13 16:18 | Outpatient (CLI) | payer MEDICAID, SELFPAY ==
--- NOTE | 2024-10-13 16:40 | CRLHL7_ITS ---
For Patients: As a result of the Century Cures Act, medical imaging exams and procedure reports are released immediately into your electronic medical record. You may view this report before your referring provider. If you have questions, please contact your health care provider. BILATERAL SCREENING MAMMOGRAM WITH COMPUTER-AIDED DETECTION AND TOMOSYNTHESIS TECHNIQUE: CC and MLO views were obtained. These mammographic images have been obtained using full-field digital technique. These mammographic images were interpreted with the benefit of computer-aided detection. Breast Tomosynthesis was used in this interpretation. COMPARISON FILM: 12/17/22, 12/21/22 (RIGHT only). FINDINGS: There are scattered areas of fibroglandular density. IMPRESSION: There is no radiographic evidence for malignancy. ASSESSMENT: BI-RADS Category 1: Negative RECOMMENDATION: Routine screening mammogram in 1 year. A lay language report of this examination will be provided to the patient. Alfredo Marcano M.D. Diagnostic Radiologist [email or web address] SP/Dictated by: Alfredo Marcano MD @ 10/14/2024 12:28:00 PM (Electronically Signed)
== END 2024-10-13 16:19 | disposition home or self-care (01) ==
LOC: MAMMO 16:18
PROVIDERS: PCP Physician Assistant Medical; Visit Provider Physician Assistant Medical
DX: Z12.31 Encounter for screening mammogram for malignant neoplasm of breast (principal)
CPT/HCPCS: 77063; 77067

== ENCOUNTER 2025-01-18 14:30 | Outpatient (RCR) | payer MEDICAID, SELFPAY | END 2025-03-15 10:17 | disposition home or self-care (01) | PROVIDERS: PCP Physician Assistant Medical; Visit Provider Physician Assistant Medical | DX: M54.50 Low back pain, unspecified (principal); Z51.89 Encounter for other specified aftercare | CPT/HCPCS: 97032; 97110; 97140; 97162 ==

== ENCOUNTER 2025-02-10 15:18 | Outpatient (CLI) | payer MEDICAID, SELFPAY | END 2025-02-10 15:19 | disposition home or self-care (01) | LOC: LKVREF 15:19 | PROVIDERS: PCP Physician Assistant Medical; Visit Provider Physician Assistant Medical | DX: R73.03 Prediabetes (principal); Z13.21 Encounter for screening for nutritional disorder | CPT/HCPCS: 82607 ==

== ENCOUNTER 2025-04-15 12:24 | Outpatient (CLI) | payer MEDICAID, SELFPAY ==
--- NOTE | 2025-04-15 13:00 | CRLHL7_ITS ---
For Patients: As a result of the Century Cures Act, medical imaging exams and procedure reports are released immediately into your electronic medical record. You may view this report before your referring provider. If you have questions, please contact your health care provider. INDICATION: Left forearm pinching pain and tingling of the left hand. COMPARISON: None. TECHNIQUE: Left upper extremity and neck venous ultrasound performed including maria scale/2D, color Doppler, and spectral Doppler imaging including spectral waveform analysis. FINDINGS: The internal jugular, innominate, subclavian, axillary, basilic, cephalic, and brachial veins were patent and negative for thrombus. IMPRESSION: No evidence for DVT in the left upper extremity and neck venous system. Dictated by Alfredo Marcano MD @ 04/15/2025 8:36:23 PM (Electronically Signed)
== END 2025-04-15 12:25 | disposition home or self-care (01) ==
LOC: US 12:24
PROVIDERS: PCP Physician Assistant Medical; Visit Provider Physician Assistant Medical
DX: R29.898 Other symptoms and signs involving the musculoskeletal system (principal); R20.2 Paresthesia of skin
CPT/HCPCS: 93971

== ENCOUNTER 2025-05-24 08:42 | Outpatient (CLI) | payer MEDICAID, SELFPAY ==
--- NOTE | 2025-05-24 09:00 | CRLHL7_ITS ---
For Patients: As a result of the Century Cures Act, medical imaging exams and procedure reports are released immediately into your electronic medical record. You may view this report before your referring provider. If you have questions, please contact your health care provider. INDICATION: Localized swelling, mass, lump. TECHNIQUE: CT abdomen and pelvis without contrast. COMPARISON: None available. FINDINGS: Lower chest: Punctate calcified granuloma in the right lower lobe. Subsegmental atelectasis in the right middle lobe and lingula. No focal consolidation. Evaluation of solid organs is limited secondary to lack of IV contrast administration. Liver: Diffuse hepatic steatosis, with focal fatty sparing adjacent to the gallbladder fossa. Gallbladder and bile ducts: Gallbladder is decompressed, suboptimally evaluated. No calcified gallstones. Pancreas: Unremarkable. Spleen: Unremarkable. Adrenal glands: Unremarkable. Kidneys: Punctate nonobstructing calculi in the lower poles of the kidneys bilaterally. Retroperitoneum: No lymphadenopathy. Bowel and mesentery: Bowel is not obstructed. No significant ascites, no pneumoperitoneum. Normal appendix. Bladder: Unremarkable for degree of distention. Reproductive organs: Bilateral Essure devices are noted. Pelvic lymph nodes: No lymphadenopathy. Vessels: Few scattered atherosclerotic calcifications. Abdominal wall: Fat filled supraumbilical ventral abdominal wall hernia, with narrow neck measuring 1.5 cm in transverse dimension and 0.8 cm in cranial-caudal dimension. Bones: Multilevel degenerative changes of the spine. No suspicious/aggressive focal osseous lesion. IMPRESSION: 1. Fat filled supraumbilical ventral abdominal wall hernia, with narrow neck measuring 1.5 x 0.8 cm. 2. Punctate nonobstructing bilateral renal calculi. 3. Diffuse hepatic steatosis. Please note that all CT scans at this facility use dose modulation, iterative reconstruction, and/or weight-based dosing when appropriate to reduce radiation dose to as low as reasonably achievable. Dictated by Jessica Gallego MD @ 05/24/2025 6:47:56 PM (Electronically Signed)
== END 2025-05-24 08:43 | disposition home or self-care (01) ==
LOC: CT 08:43
PROVIDERS: PCP Physician Assistant Medical; Visit Provider Physician Assistant Medical
DX: R22.2 Localized swelling, mass and lump, trunk (principal); K43.9 Ventral hernia without obstruction or gangrene; N20.0 Calculus of kidney; K76.0 Fatty (change of) liver, not elsewhere classified
CPT/HCPCS: 74176

== ENCOUNTER 2025-06-18 08:50 | Emergency (ER) | payer MEDICAID, SELFPAY ==
--- OUTSIDE RECORDS SUMMARY | 2025-06-18 08:52 | XMS_ITS | Clinical Summary ---
Author Organization [employer] [facility] [employer] [facility] Address [address] [place] [id number] Care Team Providers Care Safety Assistant Name Role Phone Pcp, No Primary Care Provider Unavailabl e Allergies No known active allergies Medications albuterol HFA (PROAIR HFA) 90 mcg/Actuation inhaler Inhale 2 Puffs by mouth every 4 hours if needed for Shortness Of Breath. 1 Inhaler 0 0 Active lisinopril-hydr ochlorothiazide 20-12.5 mg tablet (PRINZIDE) Take 1 Tablet by mouth once daily. 4 Active Zepbound 2.5 mg/0.5 mL pen Inject 2.5 mg subcutaneous once weekly. Active Active Problems Problem Noted Date Diagnosed Date Fatty liver 11/02/2010 Tobacco use disorder 09/06/2010 HTN (hypertension) 07/11/2010 Family History Medical History Relation Name Comments Diabetes Mother Genetic Mother Hemachromatosis Other Mother glaucoma Cancer-breast Sister Relation Name Status Comments Mother Sister Social History Tobacco Use Types Packs/Day Years Used Date Smoking Tobacco: Every Day Cigarettes Tobacco Cessation:Ready to Q uit: Not Asked; Counseling Given: Not Answered Alcohol Use Standard Drinks/Week Comments No 0 (1 standard drink = 0.6 oz pur e alcohol) Comments No Sex and Gender Information Value Date Recorded Sex Assigned at Not on file Legal Sex Female 5:51 AM [employer] Gender Identity Not on file Sexual Orientation Not on file Obstetrics History Para Term AB IAB SAB Ectopic Multiple Livin g Live Births 3 3 0 Date Outcome GA Total Labor Labor/2nd/3rd Weight Sex Type Anes PTL Marivel A1 A5 Name Clin Para Vag-Spo nt Para Vag-Spo nt Para Vag-Spo nt Last Filed Vital Signs Vital Sign Reading Time Taken Comments Blood Pressure 132/78 11/09/2024 10:59 AM [employer] Pulse 99 11/09/2024 10:59 AM [employer] Temperature 36.4 C (97.6 F) 11/09/2024 10:59 AM [employer] Respiratory Rate 16 11/09/2024 10:5 9 AM [employer] Oxygen Saturation 97% 11/09/2024 10: 59 AM [employer] Inhaled Oxygen Concentration - - Weight 119.8 kg (264 lb 3.2 oz) 025 10:59 AM [employer] Height 157.5 cm (5' 2) 11/09/2024 10:5 9 AM [employer] Body Mass Index 48.32 11/09/2024 10:59 AM [employer] Plan of Treatment Health Maintenance Due Date Last Done Comments Tetanus booster 1988 Depression screening for age 12+ 1989 HIV for age 15-65 1992 Hepatitis C screening for age 18-79 1995 Hepatitis B series for 19+ ( 1 of 3 - 19+ 3-dose series) 1996 Pneumococcal series for age 6-49 (1 of 2 - PCV) 1996 Pap test for age 21-65 07/19/2013 07/19/2010 Colonoscopy through age 75 2022 Lipids for age 45-75 2022 07/19/2010, 07/19/20 10 Mammogram for age 45-75 2022 COVID-19 vaccine series ( season) 2025 01/26/2021, 01/05/2021 Influenza Vaccine (#1) 2025 BMI (ht and wt on same day) for age 18+ 11/09/2025 0 11/09/2024 RSV vaccine for adults or pr egnancy (1 - 1-dose 75+ series) 2052 Medical Devices Implanted Type Area Bulb Grader Device Identifier Shelf Expiration Date Model / Serial / Lot System Control Permanentpressure - [id number] Implanted:Qty: 2 on 09/13/2010 at [facility] Bilateral: Fallopian Tube [employer] 08/07/2012 [id number] / / [id number] Procedures Procedure Name Priority Date/Time Associated Diagnosis Comments AUTOMATION MACHINE OPERATOR THIN PREP PAP SCREEN IMAGED Routine 07/19/2010 9:38 AM CDT Pap smear for cervical cancer screening LIPID PANEL W REFLEX MEASURED LDL Routine 07/19/2010 9:37 AM CDT Lipid screening from Last 3 Months or Most Recently Relevant to Health Maintenance Results * AUTOMATION MACHINE OPERATOR THIN PREP PAP SCREEN IMAGED (07/19/2010 9:38 AM CDT) CYTOLOGY CYTOPATHOLOGY REPORT [facility] Status: Final Status [id number] CLINICAL INFORMATION Last Date of LMP :07/08/2010 Last Pap Date :2001 Last Pap Result :NIL ABN [place]/Bx Past 5 YRS :None Hormone Usage :BCP/OCP/Patch/Rin g Menstrual Status :Regular Periods [place]/Bx done today :No Additional Information :None given [...] malignant lesions. COLLECTED:07/19/10 ACCESSIONED: 07/20/10 SIGNED: 07/29/10 [facility] PAP [place] CODE NIL [facility] Cervical/Vaginal (Cervical/Vagina l) 07/19/2010 9:38 AM CDT 07/19/2010 9:37 AM CDT us Herlinda Aleman DO PATHOLOGY/CYTOLOGY Final Re sult [facility] INTERNAL ZIP [id number] [place] [id number] * (ABNORMAL) LIPID PANEL W REFLEX MEASURED LDL (07/19/2010 9:37 AM CDT) CHOLESTEROL,TOTAL 240(H) 110 - 199 mg/dL [facility] TRIGLYCERIDES 401(H) 40 - 149 mg/dL [facility] HDL CHOLESTEROL 42 >40 mg/dL [facility] CHOL/HDL RATIO 5.71(H) <4.51 [facility] LDL CHOLESTEROL Invalid LDL when Trig >400 reflexed to measured LDL. [facility] PATIENT STATUS Fasting [facility] Blood specimen (specimen) BLOOD SPECIMEN / Unknown 07/19/2010 9:37 AM CDT 07/19/2010 9:35 AM CDT Herlinda Aleman DO CHEMISTRY Final Resul t [facility] INTERNAL ZIP [id number] [place] [id number] from Last 3 Months or Most Recently Relevant to Health Maintenance Insurance MEDICAID Advance Directives * Full Code (Latest Code Status on File) Date Activated Date Inactivated Comments 09/13/2010 9:53 AM 09/13/2010 8:27 PM Care Teams Safety Assistant Relationship Specialty Start Date End Date Pcp, No . PCP - General 11/30/16
[2025-06-18 08:53] VITALS: BP 144/90; PULSE 87; RESP 24; TEMP 36.1; O2SAT 99; BMI 42.8
--- NOTE | 2025-06-18 09:24 | ED_ITS ---
HPI - General Adult General Time Seen by Provider: 09:55 Date Seen: 06/18/25 Chief complaint: Rib Pain Stated complaint: L rib pain Time Seen by Provider: 06/18/25 09:22 Source: patient and RN notes reviewed Mode of arrival: ambulatory Limitations: no limitations History of Present Illness HPI narrative: This 49-year-old female is coming in with concern of possible broken ribs. She was washing her dog in leaning on the side of the tub on Saturday when this happen. She heard a popping sound and felt pain. The pain is increasing. It hurts with breathing. It is making her feel short of breath. No cough or fevers. She has been trying Tylenol and ice without relief of pain. Feels the pain is getting worse. Related Data Home Medications ?Medication ?Instructions ?Recorded ?Confirmed albuterol sulfate 90 mcg/actuation 2 puff inhalation Q 6H PRN 07/03/22 06/18/25 aerosol inhaler (ProAir HFA) fluticasone 500 mcg-salmeterol 50 1 ea inhalation YESSENIA Y 09/21/24 06/18/25 mcg/dose blistr powdr for inhalation (Advair Diskus) ipratropium 20 mcg-albuterol 100 1 puff inhalation Q4H PRN 09/21/24 06/18/25 mcg/actuation mist for inhalation (Combivent Respimat) Previous Rx's ?Medication ?Instructions ?Recorded lisinopril 20 1 tab PO QDAY #90 tabs 09/10 mg-hydrochlorothiazide 12.5 mg tablet tirzepatide (weight loss) 10 10 mg (0.5 mL) subcut QWE EK #2 mL 06/02/25 mg/0.5 mL subcutaneous pen injector (Zepbound) Allergies Allergy/AdvReac Type Severity Reaction Status Date / Time No Known Drug Allergies Allergy Verified 06/18/25 08:59 Review of Systems Status of ROS: Reports: 6 or more systems reviewed and unremarkable except as noted in History and below PFSH PFSH Surgical History History of carpal tunnel surgery of right wrist (10/23/23) ?Z98.890 - Other specified postprocedural states (ICD-10) History of endometrial ablation ?Z98.890 - Other specified postprocedural states (ICD-10) Family History Mother Gout High blood pressure Brother Gout Father Renal failure Social History Narrative: former smoker- quit 2019 has 3 children Smoking Status: Current some day smoker Do you use any of these nicotine containing products: None Second hand tobacco smoke exposure: No How often do you have a drink containing alcohol: never How often do you have six or more drinks on one occasion: Never AUDIT-C Alcohol total score: 0 Non-prescribed substance use: denies use service: No Exam Const: Vital Signs, click to edit/add: Vital Signs - 24 hr 06/18/25 08:53 Temperature 96.9 F L Pulse Rate [Pulse Oximeter] 87 Respiratory Rate 24 Blood Pressure [Ri ght Upper Arm] 144/90 H Pulse Oximetry 99 Oxygen Delivery Me thod Room Air This patient is standing in exam room for when I come in. She looks like she is uncomfortable but is alert, interactive, no apparent distress. Face atraumatic, able speak in complete sentences, speech is normal. Neck thicker but no jugular venous distension noted. Lungs are clear, good air entry, no wheezing or crackles, no tachypnea. CV regular rate and rhythm, no murmur, normal S1-S2, no S3-S4. Left chest wall inspected, no ecchymosis or erythema. She is palpably tender on the lower anterolateral chest wall without any step-off, no crepitus. Documenting provider has reviewed patient's vital signs: yes Course Course ED Course: Patient declines anything for pain management at this time. Will obtain x-ray images with left rib views to see if there is any visible fracture. Do not feel we need to do chest CT in this 49-year-old female. Reevaluation(s) Time of Reevaluation #1: 10:57 Reevaluation #1: Reviewed with patient that her chest x-ray did not show any displaced rib fractures. Clinically, she certainly seems like she has a rib fracture and would treat as such. We discussed splinting, Tylenol ibuprofen. Did offer her something stronger for pain management at least at bedtime, she declines at this time. We did discuss signs and symptoms for return including symptoms of secondary pneumonia which can be a complication of chest wall trauma. Vital Signs Vital signs: Initial Vital Signs Temperature 96.9 F L 06/18/25 08:53 Temperature Source Temporal Artery Scan 06/18/25 08:53 Pulse Rate 87 06/18/25 08:53 Respiratory Rate 24 06/18/25 08:53 Blood Pressure 144/90 H 06/18/25 08:53 Blood Pressure Mean 108 H 06/18/25 08:53 Blood Pressure Position Standing 06/18/25 08:53 Pulse Oximetry 99 06/18/25 08:53 Oxygen Delivery Method Room Air 06/18/25 08:53 Vital Signs Temperature 96.9 F L 06/18/25 08:53 Pulse Rate 87 06/18/25 08:53 Respiratory Rate 24 06/18/25 08:53 Blood Pressure 144/90 H 06/18/25 08:53 Pulse Oximetry 99 06/18/25 08:53 Oxygen Delivery Method Room Air 06/18/25 08:53 Temperature 96.9 F L 06/18/25 08:53 Pulse Rate 87 06/18/25 08:53 Respiratory Rate 24 06/18/25 08:53 Blood Pressure 144/90 H 06/18/25 08:53 Pulse Oximetry 99 06/18/25 08:53 Oxygen Delivery Method Room Air 06/18/25 08:53 Medical Decision Making Imaging Data Chest x-ray: Attestation: I have reviewed the pertinent imaging results. My impression: Did review her chest x-ray, I do not appreciate any rib fracture. Radiologist's impression: Patient: PHYLLIS DECKER Facility:?[facility] Patient ID:?[id number] Site Patient ID:?[id number]. Site :?[id number] Study:?XRay-Chest 1 VIEW; LEFT RIBS 2 VIEW-06/18/2025 10:20:46 AM Ordering Physician:Kirsty Horta Final Report: INDICATION: Injury with left lower chest wall pain COMPARISON: Chest radiograph dated July 29, 2024 TECHNIQUE: A single view of the chest was acquired as well as 3 additional images of the left ribcage FINDINGS: TUBES AND LINES: A HEART AND MEDIASTINUM: The heart size is normal. The mediastinal contour appears normal for patient age. LUNGS AND PLEURAL SPACES: The lungs appear normal.The pleural spaces are unremarkable. OSSEOUS STRUCTURES: Age-appropriate appearance. No acute focal finding.No visible displaced rib fracture. Nondisplaced rib fractures are difficult to appreciate by plain film IMPRESSION: No evidence of active pulmonary disease. No visible displaced left rib fracture. Dictated by Jamel Bolanos MD @ 06/18/2025 10:54:46 AM (Electronic Signature) Discharge Plan Discharge Clinical Impression: Acute chest wall pain Patient Disposition: Home, Self-Care Condition: Stable Instructions: Rib Fracture (ED), Chest Wall Pain (ED) Additional Instructions: I do suspect that you have a nondisplaced rib fracture in this chest wall. Have provided patient education information on this. Tylenol 1000 mg 3 times a day baseline for pain management. Can supplement with ibuprofen 600 mg up to 4 times a day, recommend taking ibuprofen with food to help protect her stomach. If you are not improving over the next few weeks, failure pain is worsening at any point, have increasing shortness of breath, develop fever or cough cough for concern of pneumonia as a complication of chest wall trauma, need to seek re- evaluation Activity Level: Activity as Tolerated Prescriptions: No Action albuterol sulfate [ProAir HFA] 90 mcg/actuation HFA aerosol inhaler 2 puff inhalation Q6H PRN Combivent Respimat 20-100 mcg/actuation mist 1 puff inhalation Q4H PRN Patient Comments: INHALE 1 PUFF BY MOUTH 4 TIMES A DAY fluticasone propion-salmeterol [Advair Diskus] 500-50 mcg/dose blister with device 1 ea inhalation DAILY lisinopril-hydrochlorothiazide 20-12.5 mg tablet 1 tab PO QDAY Qty: 90 3RF Rx Instructions: once daily for blood pressure Zepbound 10 mg/0.5 mL pen injector 10 mg subcut QWEEK Qty: 2 0RF Follow Up/Referrals: Minerva Payton PA-C [Primary Care Provider, Family Practice] Stand Alone Forms: [employer] Info Instructions
--- NOTE | 2025-06-18 09:57 | CRLHL7_ITS ---
For Patients: As a result of the Cures Act, medical imaging exams and procedure reports are released immediately into your electronic medical record. You may view this report before your referring provider. If you have questions, please contact your health care provider. INDICATION: Injury with left lower chest wall pain COMPARISON: Chest radiograph dated July 29, 2024 TECHNIQUE: A single view of the chest was acquired as well as 3 additional images of the left ribcage FINDINGS: TUBES AND LINES: A HEART AND MEDIASTINUM: The heart size is normal. The mediastinal contour appears normal for patient age. LUNGS AND PLEURAL SPACES: The lungs appear normal.The pleural spaces are unremarkable. OSSEOUS STRUCTURES: Age-appropriate appearance. No acute focal finding.No visible displaced rib fracture. Nondisplaced rib fractures are difficult to appreciate by plain film IMPRESSION: No evidence of active pulmonary disease. No visible displaced left rib fracture. Dictated by Jamel Bolanos MD @ 06/18/2025 10:54:46 AM (Electronically Signed)
== END 2025-06-18 11:09 | disposition home or self-care (01) ==
PROVIDERS: Emergency Provider Family Medicine; PCP Physician Assistant Medical
DX: R07.89 Other chest pain (principal)
CPT/HCPCS: 71101; 99283; 99284